=== PATIENT | male | born 1980 | race African-American/Black ===

== ENCOUNTER 2019-07-04 01:21 | Emergency (ER) | payer MEDICAID, OTHER ==
[~2019-07-04] VITALS: Ht 190.5 cm; Wt 104.0 kg
[2019-07-04] MEDS ORDERED: DEXAMETHASONE 4MG TABLET PO ONE (02:30)
[2019-07-04] MEDS ORDERED: ALBUTEROL (0.5%) 2.5MG/0.5ML NEB HHN ONE (02:30)
[2019-07-04] MEDS ORDERED: IPRATROPIUM BROMIDE (0.02%) 0.5MG/2.5ML NEB HHN ONE (02:30)
[2019-07-04 05:00] VITALS: BP 131/72
[2019-07-04] MEDS ORDERED: IPRATROPIUM/ALBUTEROL 0.5-3(2.5)MG/3ML NEB HHN ONE (05:00)
== END 2019-07-04 06:07 | disposition home or self-care (01) ==
LOC: ER 01:51
DX: J45.901 Unspecified asthma with (acute) exacerbation (principal); Z98.890 Other specified postprocedural states
CPT/HCPCS: 71045; 93005; 94640; 94644; 99285; J7610; J8540; Z7610

== ENCOUNTER 2020-01-08 11:06 | Emergency (ER) | payer MEDICAID ==
[~2020-01-08] VITALS: Ht 190.5 cm; Wt 112.0 kg
[2020-01-08] MEDS ORDERED: ALBUTEROL (0.083%) 2.5MG/3ML NEB HHN STA (11:29)
[2020-01-08] MEDS ORDERED: IPRATROPIUM BROMIDE (0.02%) 0.5MG/2.5ML NEB HHN STA (11:29)
[2020-01-08 13:15] VITALS: BP 139/84
== END 2020-01-08 13:16 | disposition home or self-care (01) ==
LOC: ER 11:06
DX: J45.901 Unspecified asthma with (acute) exacerbation (principal)
CPT/HCPCS: 71045; 94640; 99283; Z7610

== ENCOUNTER 2020-02-17 13:35 | Emergency (ER) | payer MEDICAID, OTHER ==
[~2020-02-17] VITALS: Ht 190.5 cm; Wt 113.0 kg
[2020-02-17 14:41] VITALS: BP 137/99
== END 2020-02-17 14:42 | disposition home or self-care (01) ==
LOC: ER 13:35
DX: J45.909 Unspecified asthma, uncomplicated (principal)
CPT/HCPCS: 99283

== ENCOUNTER 2020-04-02 12:39 | Emergency (ER) | payer MEDICAID, OTHER ==
[~2020-04-02] VITALS: Ht 190.5 cm; Wt 100.0 kg
[2020-04-02 15:03] VITALS: BP 123/88
== END 2020-04-02 15:04 | disposition home or self-care (01) ==
LOC: ER 12:39
DX: Z76.0 Encounter for issue of repeat prescription (principal); J45.909 Unspecified asthma, uncomplicated; Z91.013 Allergy to seafood
CPT/HCPCS: 99283

== ENCOUNTER 2020-05-12 17:02 | Emergency (ER) | payer MEDICAID ==
[~2020-05-12] VITALS: Ht 190.5 cm; Wt 112.0 kg
[2020-05-12 18:22] VITALS: BP 153/74
== END 2020-05-12 18:24 | disposition home or self-care (01) ==
LOC: ER 17:07
DX: R07.89 Other chest pain (principal); R06.00 Dyspnea, unspecified; J44.9 Chronic obstructive pulmonary disease, unspecified; Z76.0 Encounter for issue of repeat prescription; Z96.653 Presence of artificial knee joint, bilateral; Z91.013 Allergy to seafood
CPT/HCPCS: 99283

== ENCOUNTER 2020-07-17 15:27 | Emergency (ER) | payer MEDICAID ==
[~2020-07-17] VITALS: Ht 193 cm; Wt 113.0 kg
[2020-07-17] MEDS ORDERED: CLIN300C12 MT (17:09)
[2020-07-17 17:20] VITALS: BP 145/75
== END 2020-07-17 17:22 | disposition home or self-care (01) ==
LOC: ER 15:27
DX: N49.2 Inflammatory disorders of scrotum (principal); J45.909 Unspecified asthma, uncomplicated; J44.9 Chronic obstructive pulmonary disease, unspecified
CPT/HCPCS: 10060; 76870; 93976; 99284

== ENCOUNTER 2020-10-03 12:26 | Emergency (ER) | payer OTHER ==
[~2020-10-03] VITALS: Ht 190.5 cm; Wt 115.0 kg
[~2020-10-03 12:26] MED LIST: CLIN300C12 MT
[2020-10-03] MEDS ORDERED: ALBU6.7H9 INH (13:03)
[2020-10-03] MEDS ORDERED: BUDE6.9H INH (13:03)
[2020-10-03 13:30] VITALS: BP 120/89
== END 2020-10-03 13:54 | disposition home or self-care (01) ==
LOC: ER 12:26
DX: Z76.0 Encounter for issue of repeat prescription (principal); J45.909 Unspecified asthma, uncomplicated
CPT/HCPCS: 99283